=== PATIENT | male | born 1995 | race African-American/Black ===

== ENCOUNTER → 2019-06-19 | Emergency (ER) | payer OTHER ==
[~2019-06-19] VITALS: Ht 177.8 cm; Wt 93.0 kg
== END | disposition home or self-care (01) ==
LOC: ER 18:17
DX: S61.422A Laceration with foreign body of left hand, initial encounter (principal); W32.0XXA Accidental handgun discharge, initial encounter; Y93.89 Activity, other specified; Y92.89 Other specified places as the place of occurrence of the external cause; Y99.8 Other external cause status